=== PATIENT | female | born 1995 | race Caucasian/White ===

== ENCOUNTER 2019-07-27 19:45 | Emergency (ER) | payer MEDICAID, SELFPAY ==
--- NOTE | 2019-07-27 19:50 | XRR_ITS ---
PROCEDURE INFORMATION: Exam: XR Right Ankle Exam date and time: 07/27/2019 7:51 PM Age: 24 years old Clinical indication: Injury or trauma; Injury history: Hyperextended ankle when walking with blanket; Initial encounter; Sprain or strain; Right TECHNIQUE: Imaging protocol: XR Right ankle. Views: 3 or more views. COMPARISON: No relevant prior studies available. FINDINGS: Bones/joints: There is a nondisplaced fracture of the posterior malleolus. No definite fracture of the fibula or remainder of the ankle. Soft tissues: There is soft tissue edema. XR/XR ankle RT min 3V* [id number] IMPRESSION: 1. There is soft tissue edema. 2. There is a nondisplaced fracture of the posterior malleolus.
[2019-07-27 20:01] VITALS: BP 136/75; PULSE 99; RESP 16; TEMP 37; O2SAT 99; BMI 25.5
[2019-07-27] MEDS: HYDROcodone-acetaminophen 7.5-325 mg Tablet 1 TAB PO (20:14)
--- NOTE | 2019-07-27 20:20 | W.ED.EXTPRO ---
HPI - Extremity Problem General: Chief complaint: Extremity Injury, Lower Stated complaint: FALL/R ANKLE PAIN Time Seen by Provider: 07/27/19 19:55 Source: patient Mode of arrival: ambulatory Limitations: no limitations History of Present Illness: HPI Narrative: Patient comes in today with injury to the right ankle area. Patient states that she was walking down the stairs and tripped twisting her right ankle. Patient appears in mild to moderate pain. Patient reports taking some ibuprofen prior to arrival. Patient denies any chronic medical problems. Review of Systems General: Reports: 10 or more systems reviewed and unremarkable except in HPI and below Musc: Reports: extremity pain (right lower leg) PFS ED PFSH: Statuses (acute, chronic, etc) shown below reflect problem list status as previously entered and may not be historically accurate Social History Smoking and tobacco status: current some day smoker Physical Exam Const: COMMON NORMALS: no apparent distress and oriented x3 GENERAL APPEARANCE: cooperative HENMT: COMMON NORMALS: normocephalic, external ears normal, EAC's normal, TM's normal bilaterally and external nose normal HEAD & SCALP: normal to inspection and normocephalic FACE & SINUS: normal facial exam NOSE: external nose normal GENERAL EAR: hearing not grossly impaired EXTERNAL EAR: Yes external ears normal EXTERNAL AUDITORY CANAL: EAC's normal TYMPANIC MEMBRANE: TM's normal bilaterally MOUTH: oral and palatal mucosa normal THROAT: posterior oropharynx normal Eye: COMMON NORMALS: PERRL and EOMs intact bilaterally PUPIL: Yes PERRL Neck/C-Spine: COMMON NORMALS: full ROM and no lymphadenopathy Lymph: LYMPHATIC: no lymphedema noted Chest: COMMONS NORMALS: inspection of chest normal and palpation of chest normal Resp: COMMON NORMALS: normal respiratory effort and clear to auscultation bilaterally AUSCULTATION: clear to auscultation bilaterally Cardio: COMMON NORMALS: regular rate and regular rhythm RATE: regular rate RHYTHM: regular rhythm GI: COMMON NORMALS: normal to inspection, nondistended, normoactive bowel sounds and non-tender : COMMON NORMALS: Yes no CVA tenderness BLADDER/KIDNEY EXAM: Yes no CVA tenderness Back/Pelvis: COMMON NORMALS: no CVA tenderness and thoracic and lumbar spine normal to inspection Extremity: COMMON NORMALS: normal to inspection GENERAL: No edema (right ankle) Neuro: COMMON NORMALS: oriented x3, moves all extremities and no focal motor deficits Psych: COMMON NORMALS: mental status grossly normal and cooperative Skin: COMMON NORMALS: no rashes or lesions noted GENERAL SKIN EXAM: no rashes or lesions noted Course Vital Signs: Vital signs: Vital Signs Temperature 98.6 F 07/27/19 20:01 Pulse Rate 81 07/27/19 21:11 Respiratory Rate 18 07/27/19 21:11 Blood Pressure 107/72 07/27/19 21:11 Pulse Oximetry 98 07/27/19 21:11 MDM - Extremity (Nontraumatic) MDM Narrative: Medical decision making narrative: Patient comes in today with injury to the right lower extremity. On exam patient has swelling to the right ankle area and tenderness. Pulses are intact and prompt capillary refill is noted distally. Differential diagnosis includes fracture, sprain, contusion. X-ray noted a distal posterior tibial nondisplaced fracture and a nondisplaced oblique fracture of the fibula. Patient was splinted in a posterior lower extremity splint and crutches with instructions for nonweightbearing. Case management will be consulted for follow-up with orthopedics. Patient reports understanding of care plan and need for follow-up. Discharge Plan Discharge Patient Disposition: Home, Self-Care Clinical Impression: Fracture of tibia and fibula Qualifiers: Encounter type: initial encounter Fracture type: closed Laterality: right Qualified Code(s): S82.201A - Unspecified fracture of shaft of right tibia, initial encounter for closed fracture Condition: Stable Prescriptions: New hydrocodone-acetaminophen 5-325 mg tablet 1 tab PO Q6H PRN (Reason: pain (scale score 7-10)) Qty: 10 RF: 0 Discharge Orders: Discharge Order (Routine); Ordered 07/27/19 Ordered By: Gamaliel Morales Referrals: Lzi Doan FNP [Family Provider] - Discharge Diet: Usual diet Discharge Activity: Use walker/crutches as instructed Patient Instructions: Ankle Fracture (ED) Activity Restrictions/Additional Instructions: No weight bearing Elevate leg as much as possible Use acetaminophen and ibuprofen to control pain Use hydrocodone for breakthrough pain Follow-up with orthopedics for further treatment Case management will contact you with assistance. Discharge Date/Time: 07/27/19 21:12 Coding Level of Care Code ED Credit Historian for Justus Osman Exam Problem Focused
--- NOTE | 2019-07-27 20:21 | XRR_ITS ---
PROCEDURE INFORMATION: Exam: XR Right Tibia and Fibula Exam date and time: 07/27/2019 8:22 PM Age: 24 years old Clinical indication: Pain; Right; Patient HX: Hyperextended ankle. ; Additional info: Injury TECHNIQUE: Imaging protocol: XR Right tibia and fibula. Views: 2 views. COMPARISON: No relevant prior studies available. FINDINGS: Bones/joints: There is a fracture of the posterior malleolus. No additional fracture. No knee joint effusion. There is approximately 2 mm depression of the posterior malleolar fragment on the lateral view. Soft tissues: There is soft tissue edema. No foreign body. XR/XR tibia fibula RT 2V [id number] IMPRESSION: 1. There is a fracture of the posterior malleolus. 2. There is soft tissue edema.
[2019-07-27 21:11] VITALS: BP 107/72; PULSE 81; RESP 18; O2SAT 98
--- NOTE | 2019-07-29 14:35 | DCPLANNER ---
manager budget had message to schedule a follow up appointment for patient with ortho. manager budget called ortho, spoke with Pat, gave clinic patients information. manager budget was told that patients information would be printed and reviewed. Clinic will call correctional case manager and patient with appointment information.
--- NOTE | 2019-09-03 15:40 | DCPLANNER ---
Patient did attend the appointment scheduled for 07.31.19 with ortho.
== END 2019-07-27 21:12 | disposition home or self-care (01) ==
PROVIDERS: Emergency Provider Nurse Practitioner Family; Family Provider Nurse Practitioner
DX: S82.891A Other fracture of right lower leg, initial encounter for closed fracture (principal); X50.1XXA Overexertion from prolonged static or awkward postures, initial encounter; F17.210 Nicotine dependence, cigarettes, uncomplicated
CPT/HCPCS: 29515; 73590; 73610; 99281; 99283; E0114

== ENCOUNTER → 2019-07-31 09:07 | Outpatient (BNVA) | payer MEDICAID, SELFPAY | PROVIDERS: Family Provider Nurse Practitioner; Referring Provider Nurse Practitioner Family; Visit Provider Specialist | DX: S82.891A Other fracture of right lower leg, initial encounter for closed fracture (principal); X58.XXXA Exposure to other specified factors, initial encounter | CPT/HCPCS: 73610 ==

== ENCOUNTER 2019-07-31 14:22 | Outpatient (CLI) | payer MEDICAID, SELFPAY | END 2019-07-31 14:23 | disposition home or self-care (01) | LOC: SPT 14:22 | PROVIDERS: Family Provider Nurse Practitioner; Visit Provider Specialist | DX: S82.891D Other fracture of right lower leg, subsequent encounter for closed fracture with routine healing (principal); X58.XXXD Exposure to other specified factors, subsequent encounter | CPT/HCPCS: L4361 ==

== ENCOUNTER 2019-08-02 13:39 | Emergency (ER) | payer MEDICAID, SELFPAY ==
[2019-08-02 13:42] VITALS: BP 140/65; PULSE 88; RESP 14; TEMP 36.9; O2SAT 100; BMI 25.5
--- NOTE | 2019-08-02 14:04 | ED_ITS ---
Entered by Angeli Del Valle, acting as scribe for Gisselle Fischer HPI - Extremity Problem General: Chief complaint: Extremity Injury, Lower Stated complaint: right ankle pain and numbness, dx break 1 week ago Time Seen by Provider: 08/02/19 14:03 Source: patient Mode of arrival: ambulatory Limitations: no limitations History of Present Illness: HPI Narrative: 24 yo Female presents to ED with complaint of right ankle pain. Pt was diagnosed with an ankle fracture. Pt states that she is now having a numb, tingling sensation and increased pain in her ankle. MD Complaint: extremity pain Onset (ago): day(s) Pain Consistency: constant Location: right and lower extremity Severity scale (1-10): 8 Quality: constant and other (tingling/numbness) Radiation: none Relieving factors: nothing Exacerbating factors: nothing Associated symptoms: Reports no associated symptoms; Deny chest pain, fever(s) or rash Review of Systems General: Reports: other (negative unless marked) Const: Denies: fever, chills, body aches, fatigue, malaise or diaphoresis Eyes: Denies: change in vision or blurry vision ENMT: Denies: throat pain, painful swallowing, hoarseness, ear pain, ear discharge, Change in hearing or nasal discharge Card: Denies: chest pain, palpitations, irregular heart rhythm, syncope, pre- syncope, shortness of breath on exertion or shortness of breath when lying down Resp: Denies: shortness of breath, productive cough, non-productive cough, wheezing, coughing up blood or chest congestion GI: Denies: abdominal pain, nausea, vomiting, vomiting blood, coffee grounds in vomit, diarrhea, constipation, cramping, blood in stool or black tarry stool : Denies: flank pain, painful urination, urinary frequency, urinary urgency, decreased urine ouput, urinary incontinence or blood in urine Musc: Reports: extremity pain; Denies: neck pain, back pain, extremity swelling, joint pain, joint swelling, joint warmth or joint stiffness Skin/Breast: Denies: rash, skin tenderness or yellow skin Neuro: Denies: headache, numbness in extremities, weakness in extremities, changes in sensation, lack of coordination, difficulty walking, dizziness, vertigo or confusion Endo: Denies: excessive thirst, tired all the time, cold intolerance, excessive sweating, flushing or hot flashes Elbert/Lymph: Denies: easy bruising, easy bleeding, petechiae or enlarged lymph nodes All/Imm: Denies: hives, throat swelling, tongue swelling, facial swelling or acute wheezing PFSH ED PFSH: Statuses (acute, chronic, etc) shown below reflect problem list status as previously entered and may not be historically accurate Social History Smoking and tobacco status: current every day smoker cigarettes Alcohol intake: never Current occupation: unemployed Physical Exam Const: COMMON NORMALS: no apparent distress, oriented x3, no limitations, healthy appearing and well nourished EXAM LIMITATIONS: no altered mental status GENERAL APPEARANCE: cooperative, well kempt and well developed ORIENTATION/CONSCIOUSNESS: Yes awake HENMT: COMMON NORMALS: normocephalic, head/scalp atraumatic, hearing grossly normal bilaterally, external ears normal, EAC's normal, external nose normal and moist oral mucous membranes HEAD & SCALP: normal to inspection, normocephalic and atraumatic FACE & SINUS: normal facial exam and face symmetric NOSE: external nose normal and nares normal EXTERNAL EAR: Yes external ears normal EXTERNAL AUDITORY CANAL: EAC's normal MOUTH: oral and palatal mucosa normal and tongue normal Eye: COMMON NORMALS: PERRL, EOMs intact bilaterally, conjunctivae normal and no scleral icterus GENERAL EYE: normal appearance of both eyes and normal light reflex CONJUNCTIVA: Yes conjunctivae normal SCLERA: sclerae normal CORNEA: Yes corneas normal PUPIL: Yes PERRL DIRECT OPHTHALMOSCOPY: Yes normal light reflex Neck/C-Spine: COMMON NORMALS: full ROM, no lymphadenopathy, supple, no meningeal signs and no JVD GENERAL: Yes normal visual inspection and Yes trachea midline CERVICAL SPINE: Yes cervical ROM normal Chest: COMMONS NORMALS: inspection of chest normal and palpation of chest normal Resp: COMMON NORMALS: normal respiratory effort, no retractions, no use of accessory muscles and clear to auscultation bilaterally EFFORT & INSPECTION: Yes able to speak in complete sentences AUSCULTATION: clear to auscultation bilaterally Cardio: COMMON NORMALS: no JVD, regular rate, regular rhythm, S1 normal heart sound, S2 normal heart sound, no gallops, no clicks, no murmurs and no rub JUGULAR VENOUS DISTENTION: no JVD RATE: regular rate RHYTHM: regular rhythm HEART SOUNDS: S1 normal and S2 normal GI: COMMON NORMALS: soft to palpation, non-tender, no hepatosplenomegaly and no masses INSPECTION: Yes normal to inspection PALPATION: Yes soft and Yes no hepatosplenomegaly : COMMON NORMALS: Yes no CVA tenderness BLADDER/KIDNEY EXAM: Yes no CVA tenderness Back/Pelvis: COMMON NORMALS: no CVA tenderness, thoracic and lumbar spine normal to inspection, no thoracic nor lumbar tenderness and thoraco-lumbar ROM normal Extremity: COMMON NORMALS: normal to inspection, full ROM, normal capillary refill, no joint enlargement, no clubbing, cyanosis or edema and no calf tenderness Neuro: COMMON NORMALS: oriented x3, CN's II-XII intact bilaterally, moves all extremities, no focal motor deficits and no sensory deficits noted MENINGEAL SIGNS: Yes no meningeal signs Psych: COMMON NORMALS: mental status grossly normal, thought process normal, cooperative, affect normal, speech normal and activity/motor behavior normal APPEARANCE: Yes well kempt SPEECH: Yes normal speech THOUGHT PROCESS: normal thought process Skin: COMMON NORMALS: no rashes or lesions noted, skin turgor normal, no jaundice, no petechiae and no mottling GENERAL SKIN EXAM: no rashes or lesions noted and turgor normal Course Vital Signs: Vital signs: Vital Signs Temperature 98.4 F 08/02/19 13:42 Pulse Rate 72 08/02/19 15:37 Respiratory Rate 18 08/02/19 15:37 Blood Pressure 125/79 08/02/19 15:37 Pulse Oximetry 98 08/02/19 15:37 MDM - Extremity (Nontraumatic) MDM Narrative: Medical decision making narrative: Patient comes in with complaints of burning paresthesia-like pain to her foot. She is neurovascularly intact with normal sensation, good capillary refill and normal dorsalis pedis and posterior tibial pulses. There is no sign of significant swelling or anything at all that suggest compartment syndrome. She has no pain with passive stretch, no numbness, her skin is not taut or swollen tight, there is no pulselessness in her foot is warm to the touch. There is minimal if any ecchy mosis present. Repeat x-ray showed no displacement or change in the fracture. Patient was encouraged to keep her leg up and elevated when not on it and to follow-up with Dr. Arana. She denies having any questions or concerns. She is requesting something stronger for pain but I have informed her she will have to get that from Dr. Arana. Lab Data: Labs: Lab Results 08/02/19 Range/Units 14:27 APTT 33.1 (23.9-36.7) SECO NDS Imaging Data^: XR Ankle: Radiologist's impression: [address] [address] XRay Report Signed Patient: Jane Reyes #: [id number] : 1995Acct#:[id number] Age/Sex: 24 / FADM Date: 08/02/19 Loc: ERRoom/Bed: Attending Dr: Ordering Provider/Ordering MD: Gisselle Fischer DO Date of Service: 08/02/19 Procedure(s): XR ankle RT min 3V* [id number] Accession Number(s): [id number] Report Number: [id number] WS: [id number] RIGHT ANKLE 3 VIEWS HISTORY: 24 years old Female with INJURY AP, oblique, and lateral views right ankle comparison 07/31/2019 FINDINGS: Interval removal of splint material. Ankle soft tissue swelling and ankle joint effusion reidentified. Distal tibia posterior process vertical fracture unchanged. No new fracture seen. No callus formation seen. No osteolytic or osteoblastic change. XR/XR ankle RT min 3V* [id number] IMPRESSION: 1. Ankle soft tissue swelling and unchanged distal tibia posterior process nondisplaced vertical fracture. No definite callus formation. 2. No new bone abnormality. Dictated By:Juan Francisco Malloy MD Signed By:Juan Francisco Malloy MDSigned Date/Time:08/02/19 1440 DD/ 1439 Discharge Plan Discharge Patient Disposition: Home, Self-Care Clinical Impression: Fracture of posterior malleolus of right tibia Qualifiers: Encounter type: subsequent encounter Fracture type: closed Fracture healing: with routine healing Qualified Code(s): S82.391D - Other fracture of lower end of right tibia, subsequent encounter for closed fracture with routine healing Condition: Stable Prescriptions: No Action (DME) CAM BOOT Qty: 1 RF: 0 hydrocodone-acetaminophen 5-325 mg tablet 1 tab PO Q6H PRN (Reason: pain (scale score 7-10)) Qty: 10 RF: 0 Discharge Orders: Discharge Order (Routine); Ordered 08/02/19 Ordered By: Gisselle Fischer Referrals: Lianne Loaiza MD [Physician] - 4-7 days Liz Doan FNP [Family Provider] - Discharge Diet: Usual diet Discharge Activity: Limit activity as instructed Patient Instructions: Ankle Fracture (ED) Activity Restrictions/Additional Instructions: Please return to the ER immediately for any of the signs or symptoms listed on your discharge instruction sheets, worsening/changing of your symptoms, you are not getting better as quickly as expected, or for ANY other cause or concerns. Follow all previous instructions as previously given you by Dr. Arana. Return to the ER for any cause for concern. Discharge Date/Time: 08/02/19 15:38 Coding Level of Care Code ED Employee Adviser for Chg Fwd Exam Problem Focused The documentation recorded by the Ivon maldonado Carmen, accurately reflects the service I personally performed and the decisions made by Aaliyah ramos Eli N Aug 02, 2019 13:39
--- NOTE | 2019-08-02 14:06 | XR_ITS ---
WS: [id number] RIGHT ANKLE 3 VIEWS HISTORY: 24 years old Female with INJURY AP, oblique, and lateral views right ankle comparison 07/31/2019 FINDINGS: Interval removal of splint material. Ankle soft tissue swelling and ankle joint effusion reidentified . Distal tibia posterior process vertical fracture unchanged. No new fracture seen. No callus formati on seen. No osteolytic or osteoblastic change. XR/XR ankle RT min 3V* [id number] IMPRESSION: 1. Ankle soft tissue swelling and unchanged distal tibia posterior process nond isplaced vertical fracture. No definite callus formation. 2. No new bone abnormality.
[2019-08-02] MEDS: HYDROcodone-acetaminophen 5-325 mg Tablet 1 TAB PO (14:24)
[2019-08-02 14:58] LABS: Partial Thromboplastin Time 33.1 SECONDS (23.9-36.7)
[2019-08-02 15:37] VITALS: BP 125/79; PULSE 72; RESP 18; O2SAT 98
[2019-08-02 15:59] LABS: INR 1.12 (0.8-1.2)
--- NOTE | 2019-08-05 11:03 | DCPLANNER ---
veneer department manager had message to schedule a follow up appointment for patient with ortho. veneer department manager called the ortho clinic, spoke with Maricruz, gave clinic patients information. veneer department manager was told that patients information would be printed and reviewed. Clinic will call caser up and patient with appointment information.
--- NOTE | 2019-08-08 15:40 | DCPLANNER ---
Patient has a follow up appointment scheduled for Sunday, August 25, 2019 at 10:[address] Loaiza. Clinic will call patient with appointment information.
--- NOTE | 2019-08-26 14:48 | DCPLANNER ---
Patient did attend appointment scheduled for 08.25.19 with ortho.
== END 2019-08-02 15:38 | disposition home or self-care (01) ==
PROVIDERS: Emergency Provider Emergency Medicine; Family Provider Nurse Practitioner
DX: S82.54XA Nondisplaced fracture of medial malleolus of right tibia, initial encounter for closed fracture (principal); X58.XXXA Exposure to other specified factors, initial encounter; F17.210 Nicotine dependence, cigarettes, uncomplicated
CPT/HCPCS: 36415; 73610; 85610; 85730; 99281; 99283

== ENCOUNTER 2019-08-07 14:35 | Outpatient (CLI) | payer MEDICAID, SELFPAY ==
--- NOTE | 2019-08-07 14:43 | MR_ITS ---
WS: [id number] MRI RIGHT ANKLE NONCONTRAST TECHNIQUE: Sagittal proton density, sagittal STIR, axial proton density, axial T1, axial T2 fat sat, coronal proton density, coronal proton density fat sat, coronal T2 fat sat. CLINICAL INFORMATION: Fracture of the right mallelous and possible right tibia FINDINGS: Again seen is the nondisplaced vertically oriented fracture involving the posterior tibia. This is un changed in appearance since the prior radiograph. No significant displacement. Surrounding soft tissu e edema. Small ankle effusion. In addition small amount of edema in the adjacent talar dome with a ti ny osteochondral fracture measuring 3 mm. Lateral malleolus is normal in appearance. Small amount of edema in the medial malleolus. No visualized medial malleolar fractures. Edema along the deltoid liga ment which appears intact. Small ankle effusion. Diffuse soft tissue tissue edema about the ankle. Sm all amount of edema tip of the lateral malleolus with suggestion of a tiny avulsion. Diffuse T2 signal abnormality along the anterior ATF consistent with partial high-grade intrasubstanc e tear. Partial intrasubstance tear involving the posterior ATF. In addition, complete high-grade tea r of the anterior tibiofibular ligament with no normal fibers visualized. Distal Achilles is normal in appearance. Normal peroneus longus and brevis. Normal flexor and extenso r compartment tendons. Normal plantar fascia. Tenosynovitis along the tibialis posterior. MR/MR ankle RT wo con* [id number] IMPRESSION: 1. Nondisplaced vertically oriented fracture involving the distal tibia poker room manager ior malleolus. No significant displacement. 2. Diffuse soft tissue edema with small ankle effusion. 3. Partial intrasubstance tears involving the anterior and posterior ATF. 4. Diffuse edema with complete disruption of the anterior tibiofibular ligamen t. 5. Small osteochondral fracture involving the lateral talar dome posteriorly a djacent to the tibial fracture measuring 3 mm. 6. Small amount of edema in the medial malleolus although no definite fracture . Deltoid ligament appears intact. 7. Small amount of edema tip of the lateral malleolus with suggestion of a tin y sliver avulsion.
== END 2019-08-07 14:36 | disposition home or self-care (01) ==
LOC: RADWPI 14:40
PROVIDERS: Family Provider Nurse Practitioner; PCP Family Medicine; Visit Provider Specialist
DX: S82.891A Other fracture of right lower leg, initial encounter for closed fracture (principal); S82.301A Unspecified fracture of lower end of right tibia, initial encounter for closed fracture; M25.471 Effusion, right ankle; S92.141A Displaced dome fracture of right talus, initial encounter for closed fracture; X58.XXXA Exposure to other specified factors, initial encounter
CPT/HCPCS: 73721

== ENCOUNTER → 2019-08-25 10:59 | Outpatient (BNVA) | payer MEDICAID, SELFPAY | PROVIDERS: Family Provider Nurse Practitioner; PCP Family Medicine; Visit Provider Specialist | DX: S82.391A Other fracture of lower end of right tibia, initial encounter for closed fracture (principal); X58.XXXA Exposure to other specified factors, initial encounter | CPT/HCPCS: 73610 ==

== ENCOUNTER 2019-08-25 13:39 | Outpatient (CLI) | payer MEDICAID, SELFPAY | END 2019-08-25 13:40 | disposition home or self-care (01) | LOC: SPT 13:40 | PROVIDERS: Family Provider Nurse Practitioner; PCP Family Medicine; Visit Provider Specialist | DX: S82.391D Other fracture of lower end of right tibia, subsequent encounter for closed fracture with routine healing (principal); X58.XXXD Exposure to other specified factors, subsequent encounter | CPT/HCPCS: L1902 ==

== ENCOUNTER 2023-01-25 00:48 | Emergency (ER) | payer MEDICAID, SELFPAY ==
[2023-01-25 00:56] VITALS: BP 125/74; PULSE 69; RESP 16; TEMP 36.8; O2SAT 99; BMI 28.1
[2023-01-25 01:27] LABS: Basophils # 0.1 10^3/uL (0.0-0.1); Basophils % 0.6 %; Eosinophils # 0.2 10^3/uL (0.0-0.8); Eosinophils % 2.1 %; Hemoglobin 11.3 g/dL (11.5-15.3); Lymphocytes # 3.2 10^3/uL (0.8-4.8); Lymphocytes % 32.3 %; Mean Corpuscular HGB Conc 32.3 g/dL (30.0-36.0); Mean Corpuscular Hemoglobin 28.8 pg (28.0-34.0); Mean Corpuscular Volume 89.1 fl (81-99); Mean Platelet Volume 9.5 fL (7.4-10.4); Monocytes # 0.5 10^3/uL (0.2-0.9); Monocytes % 4.5 %; Neutrophils # 5.97 10^3/uL (1.8-7.7); Neutrophils % 60.2 %; Nucleated Red Blood Cells % 0 %; Platelet Count 415 10^3/cmm (130-400); Red Blood Count 3.93 10^6/uL (4.1-5.3); Red Cell Distribution Width 13.7 % (12.1-15.1); White Blood Count 9.9 10^3/uL (4.0-10.0)
--- NOTE | 2023-01-25 01:56 | USR_ITS ---
PROCEDURE INFORMATION: Exam: US Nonobstetric Pelvis; Complete Exam date and time: 01/25/2023 2:39 AM Age: 27 years old Clinical indication: Menstruation abnormalities; Excessive menstruation; With regular cycle; Patient HX: Patient gave on 12/06/2022. Her first menses began on 01/17/23, but it is heavier than normal and also is passing clots. ; Additional info: Dizziness LABS AND CLINICAL REPORTS: Serum Choriogonadotropin (HCG): 1 mIU/mL Last menstrual period start date: 01/17/2023 TECHNIQUE: Imaging protocol: Transabdominal pelvic nonobstetric ultrasound. Complete exam. Real time ultrasound with image documentation. COMPARISON: US OB <= 14 weeks fetus [id number] 10/28/2019 9:44 AM FINDINGS: Uterus: Uterus measures 7.2 cm x 6.7 cm x 4.5 cm. There is an anterior intramural fibroid measuring 2.8 x 1.3 x 1.2 cm. There is a posterior intramural fibroid measuring 1.9 x 1.1 x 1.1 cm. Endometrium measures 6 mm. There is slightly echogenic fluid noted in the endometrial canal probably representing blood products. Right ovary/adnexa: Right ovary measures 3.6 cm x 2 cm x 2.6 cm. Right ovarian volume is 9.4 mL. There is blood flow in the right ovary. Left ovary/adnexa: Left ovary measures 3.8 cm x 2.7 cm x 1.7 cm. Left ovarian volume is 9 mL. There is blood flow in the left ovary. Intraperitoneal space: There is a small amount of free fluid in the pelvis. Urinary bladder: Normal. US/US pelvic complete* [id number] IMPRESSION: No acute findings. Uterine fibroids noted. Small amount of echogenic fluid suggestive of blood products in the endometrial canal, correlate with menstrual cycle.
--- NOTE | 2023-01-25 02:06 | W.ED.PREGNAN ---
HPI - General: Chief complaint: Vaginal Bleeding Stated complaint: vaginal bleeding Time Seen by Provider: 01/25/23 01:00 Source: patient Mode of arrival: ambulatory Limitations: no limitations History of Present Illness: 27-year-old female who had a vaginal delivery 7 weeks ago states she had had her menstruation until 6 days ago states she been having heavy menstruation last 6 days she is concerned as she is passing some clots and going through pads she denies any hypotension or weakness denies any fever she denies any vomiting or diarrhea denies any abdominal pain. Date of Last Menstrual Period: 01/25/23 Associated symptoms: Deny abdominal pain, dysuria, headache(s), nausea or vomiting Review of Systems Const: Denies: fever(s), chills, body aches or change in appetite ENMT: Denies: throat pain or dental pain Card: Denies: chest pain Resp: Denies: dyspnea GI: Denies: abdominal pain, nausea, vomiting or diarrhea : Reports: vaginal bleeding; Denies: dysuria Musc: Denies: neck pain or back pain Skin/Breast: Denies: rash Neuro: Denies: headache(s) PFSH ED PFSH: Medical History (Updated 01/25/23 @ 03:39 by Oli Enriquez MD) Fracture of tibia and fibula Social History Smoking and tobacco status: current every day smoker cigarettes Alcohol intake: never Substance/Drug Use: never Current occupation: unemployed Female Reproductive History: Date of last menstrual period: 01/25/23 Physical Exam Const: COMMON NORMALS: no acute distress, patient oriented x3 and healthy appearing HENMT: COMMON NORMALS: normocephalic and atraumatic HEAD & SCALP: normocephalic and atraumatic Neck/C-Spine: COMMON NORMALS: full ROM and supple Chest: COMMONS NORMALS: normal inspection of the chest Resp: COMMON NORMALS: normal respiratory effort Cardio: COMMON NORMALS: regular rate, regular rhythm and No murmurs present (Cardio) RATE: regular rate RHYTHM: regular rhythm GI: COMMON NORMALS: Normal to inspection, nondistended, normoactive bowel sounds present, Soft to palpation, non-tender and no masses PALPATION: Yes Soft to palpation Extremity: COMMON NORMALS: normal to inspection and full ROM Neuro: COMMON NORMALS: patient oriented x3, moves all extremities and no focal motor deficits Psych: COMMON NORMALS: mental status grossly normal, Normal thought process present and cooperative THOUGHT PROCESS: Normal thought process present Skin: COMMON NORMALS: no rashes or lesions noted and no wounds GENERAL SKIN EXAM: no rashes or lesions noted Course Vital Signs: Vital signs: Vital Signs Temperature 98.2 F 01/25/23 00:56 Pulse Rate 69 01/25/23 00:56 Respiratory Rate 16 01/25/23 00:56 Blood Pressure 125/74 01/25/23 00:56 Pulse Oximetry 99 01/25/23 00:56 Oxygen Delivery Me thod Room Air 01/25/23 00:56 MDM - OB/Uterine Contractions Medical Decision Making Patient presents here with vaginal bleeding is likely heavy menstruation as is her first menstruation since her delivery ultrasound showed fibroids no large amount of bleeding hemoglobin here is normal. 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 Lab Data I reviewed the patient's lab results. 01/25/23 01:14 Radiology Impressions Pelvis Ultrasound 01/25/23 01:56 IMPRESSION: No acute findings. Uterine fibroids noted. Small amount of echogenic fluid suggestive of blood products in the endometrial canal, correlate with menstrual cycle. Laboratory Results WBC 9.9 10^3/uL (4.0-10.0) 01/25/23 01:14 RBC 3.93 10^6/uL (4.1-5.3) L 01/25/23 01:14 Hgb 11.3 g/dL (11.5-15.3) L 01/25/23 01:14 Hct 35.0 % (37.0-47.0) L 01/25/23 01:14 MCV 89.1 fl (81-99) 01/25/23 01:14 MCH 28.8 pg (28.0-34.0) 01/25/23 01:14 MCHC 32.3 g/dL (30.0-36.0) 01/25/23 01:14 RDW 13.7 % (12.1-15.1) 01/25/23 01:14 Plt Count 415 10^3/cmm (130-400) H 01/25/23 01:14 MPV 9.5 fL (7.4-10.4) 01/25/23 01:14 Neut % (Auto) 60.2 % 01/25/23 01:14 Lymph % (Auto) 32.3 % 01/25/23 01:14 [place] % (Auto) 4.5 % 01/25/23 01:14 Eos % (Auto) 2.1 % 01/25/23 01:14 Baso % (Auto) 0.6 % 01/25/23 01:14 Neut # (Auto) 5.97 10^3/uL (1.8-7.7) 01/25/23 01:14 Lymph # (Auto) 3.2 10^3/uL (0.8-4.8) 01/25/23 01:14 [place] # (Auto) 0.5 10^3/uL (0.2-0.9) 01/25/23 01:14 Eos # (Auto) 0.2 10^3/uL (0.0-0.8) 01/25/23 01:14 Baso # (Auto) 0.1 10^3/uL (0.0-0.1) 01/25/23 01:14 Nucleated RBC % (auto) 0 % 01/25/23 01:14 Nucleated RBCs # 0.0 /100WBC 01/25/23 01:14 Ser , Semi-Qnt 1.00 mIU/mL 01/25/23 01:14 Blood Type A Positive 01/25/23 01:14 Rho(D) Type Positive 01/25/23 01:14 Antibody Screen Negative 01/25/23 01:14 Discharge Plan Discharge Patient Disposition: Home Clinical Impression: Vaginal bleeding, Fibroid, uterine Condition: Stable Prescriptions: No Action (DME) CAM BOOT Qty: 1 0RF Rx Instructions: As directed (DME) lace up ankle brace Qty: 1 0RF Rx Instructions: As directed Discharge Orders: Discharge ED (Routine); Ordered 01/25/23 Ordered By: Oli Enriquez Discharge Diet: Advance as tolerated Discharge Activity: Resume usual activity Patient Instructions: Abnormal (Dysfunctional) Uterine Bleeding (ED), Uterine Fibroids (ED) Coding Level of Care Code ED Business Relationship Manager for Justus Osman
[2023-01-25 03:02] VITALS: BP 123/53; PULSE 82; O2SAT 98
[2023-01-25 03:30] VITALS: BP 111/73; PULSE 59; O2SAT 98
[2023-01-25 03:45] VITALS: BP 117/61; PULSE 57; RESP 18; O2SAT 98
== END 2023-01-25 03:50 | disposition home or self-care (01) ==
PROVIDERS: Emergency Provider Emergency Medicine
DX: N93.9 Abnormal uterine and vaginal bleeding, unspecified (principal); D25.9 Leiomyoma of uterus, unspecified; F17.210 Nicotine dependence, cigarettes, uncomplicated
CPT/HCPCS: 36415; 76856; 84702; 85025; 86850; 86900; 99284

== ENCOUNTER → 2024-01-01 11:14 | Outpatient (BNVA) | payer MEDICAID, SELFPAY | PROVIDERS: Visit Provider Physician Assistant | DX: M25.361 Other instability, right knee; M25.561 Pain in right knee; M25.562 Pain in left knee | CPT/HCPCS: 73560; 73565 ==